=== PATIENT | male | born 1975 | race African-American/Black ===

== ENCOUNTER 2017-02-09 09:18 | Emergency (ER) | payer OTHER ==
[~2017-02-09] VITALS: Ht 175.3 cm; Wt 72.5 kg
[~2017-02-09 09:18] MED LIST: OXYC-360 PO; SULF1TAB47 PO; Z.0.NO CURRENT MEDS
[2017-02-09 09:19] VITALS: BP 110/69; PULSE 62; RESP 16; TEMP 97.9; O2SAT 100
[2017-02-09] MEDS ORDERED: CIPR-9 PO (09:30)
[2017-02-09] MEDS ORDERED: cefTRIAXone 250 MG VIAL IM ONE (09:45)
[2017-02-09] MEDS ORDERED: LIDOCAINE HCL 1% 50 ML VIAL XX ONE (09:45)
[2017-02-09] MEDS ORDERED: AZITHROMYCIN 250 MG TAB PO ONE (09:45)
[2017-02-09] MEDS ORDERED: TRAM50TA PO (09:47)
[2017-02-09] MEDS ORDERED: IBUP800T23 PO (09:47)
--- NOTE | 2017-02-09 09:48 | PD ---
HPI . Groin pain Chief Complaint: Pain: Acute or Chronic Time Seen by Provider: 09:28 Travel History International Travel<30 days: No Contact w/Intl Traveler<30days: No Traveled to known affect area: No History of Present Illness HPI Patient presents with a chief complaint of groin pain for about 2 weeks. The right hurts worse than the left. He rates his pain as 9/10. Pain is exacerbated by certain movements and it is sore to the touch. He states that his pain is relieved by being still. Patient has been seen by his primary care provider who prescribed Cipro. He has been on Cipro for over a week but is no better. He denies any penile discharge, testicular pain or swelling, systemic symptoms such as fever or vomiting. He denies any recent lower extremity scraped or scratches. PFSH Past Medical History Arthritis: Yes Blood Disorders: No Cancer: No Cardiovascular Problems: No Chemotherapy: No Diminished Hearing: No Endocrine: No Gastrointestinal Disorders: No Genitourinary: No Immune Disorder: No Musculoskeletal: Yes Neurologic: Yes Psychiatric: No Respiratory: No Radiation Therapy: No Tetanus Vaccination: > 5 Years Influenza Vaccination: Yes Past Surgical History AICD: No Joint Replacement: No Pacemaker: No Social History Alcohol Use: Yes (WEEKENDS) Tobacco Use: No Substance Use: No Allergies-Medications (Allergen,Severity, Reaction): Coded Allergies: No Known Allergies (Verified , 02/09/17) Reported Meds & Prescriptions Reported Meds & Active Scripts Active Reported Cipro (Ciprofloxacin HCl) 500 Mg Tab 500 Mg PO BID Review of Systems Except as stated in HPI: all other systems reviewed are Neg General / Constitutional: No: Fever, Chills Genitourinary: No: Urgency, Frequency, Dysuria, Flank Pain, Discharge Hematologic/Lymphatic: Positive: Lymph Node Enlargement Physical Exam Narrative GENERAL: Awake and alert and in no acute distress. SKIN: Warm and dry. His legs have no evidence of cellulitis, etc. HEAD: Atraumatic. Normocephalic. EYES: Pupils equal and round. NECK: Trachea midline. CARDIOVASCULAR: Regular rate and rhythm. RESPIRATORY: No accessory muscle use. : Normal circumcised male. No penile discharge. No testicular tenderness or swelling. No epididymal tenderness or swelling. No palpable inguinal hernia. Bilateral inguinal lymphadenopathy, right worse than left. The lymph nodes are tender to the touch. Palpation of his lymph nodes reproduces the pain that he has been having. MUSCULOSKELETAL: No obvious deformities. No edema. NEUROLOGICAL: Awake and alert. No obvious cranial nerve deficits. Motor grossly within normal limits. Normal speech. PSYCHIATRIC: Appropriate mood and affect; insight and judgment normal. Data Data Last Documented VS Vital Signs Date Time Temp Pulse Resp B/P Pulse Ox O2 Delivery O2 Flow Rate FiO2 02/09/17 09:32 16 02/09/17 09:19 97.9 62 110/69 100 Room Air MDM Medical Decision Making Medical Screen Exam Complete: Yes Emergency Medical Condition: Yes Differential Diagnosis My differential diagnosis of groin pain includes but is not limited to groin strain, lymphadenopathy, hernia, epididymitis, testicular torsion Narrative Course Patient presents complaining of bilateral groin pain, right worse than left. On exam, he has inguinal lymphadenopathy. The source of his inguinal lymphadenopathy has not yet been determined. I have ordered a chlamydial DNA probe. He will be treated presumptively for STDs with Rocephin and Zithromax. I will have him discontinue the Cipro as it is not working. I will discharge him on Motrin and warm compresses. He should follow up with his primary care physician in about a week for recheck. Diagnosis Primary Impression: Inguinal lymphadenopathy Referrals: Primary Care Physician 1 week Patient Instructions: General Instructions, Lymphadenopathy (ED) Additional Instructions: Warm compresses to the area as frequently as she can. Follow-up with her primary care physician in about a week. Stop the Cipro. Med/Other Pt SpecificInfo: Prescription(s) given, Med Stopped Scripts Tramadol 50 Mg Tab50 Mg PO Q4H PRN (PAIN) #12 TAB Ref 0 Prov:Mary Berg MD 02/09/17 Ibuprofen 800 Mg [id number] Mg PO Q8H PRN (Pain/Inflammation) #60 TAB Ref 0 Prov:Mary Berg MD 02/09/17 Disposition: DISCHARGE HOME Condition: Stable Mary Berg MD Feb 09, 2017 09:48
[2017-02-09 10:15] VITALS: BP 120/78; TEMP 97.8
[2017-02-09 13:02] LABS: CHLAMYDIA PCR NOT DETECTED (NOT DETECT); NEISSERIA PCR NOT DETECTED (NOT DETECT)
== END 2017-02-09 10:15 | disposition home or self-care (01) ==
LOC: NEPD 09:18
DX: R59.0 Localized enlarged lymph nodes (principal)
CPT/HCPCS: 87491; 87591; 96372; 99284; J0696